=== PATIENT | male | born 1950 | race Caucasian/White ===

== ENCOUNTER 2018-06-15 11:44 | Observation (INO) | payer MEDICARE, OTHER, MEDICAID ==
[2018-06-15] MEDS: CEFAZOLIN 1 GM/50 ML (PMX) 50 ML IVPB ×2 (12:00→16:53)
[2018-06-15] MEDS: DEXAMETHASONE 4 MG/ML 1 ML INJ IV (12:50)
[2018-06-15] MEDS: LANSOPRAZOLE 30 MG CAP PO (12:54)
[2018-06-15] MEDS: ACETAMINOPHEN 1000MG/100ML IV 100 ML IVPB (12:55)
[2018-06-15] MEDS: LACTATED RINGER'S 1,000 ML IV* (12:56)
[2018-06-15] MEDS: oxyCODONE (CR) 10 MG TAB [oxyCONTIN] PO (12:56)
[2018-06-15] MEDS: ONDANSETRON 4 MG INJ IV ×3 (12:57→23:00)
[2018-06-15] MEDS ORDERED: BISACODYL 10 MG SUPP PR (13:00)
[2018-06-15] MEDS ORDERED: oxyCODONE 5 MG TAB PO (13:00)
[2018-06-15] MEDS ORDERED: NA PHOSPHATE/BIPHOS 133 ML ENEMA PR (13:00)
[2018-06-15] MEDS ORDERED: SENNA/DOCUSATE NA (8.6MG/50MG) TAB PO (13:00)
[2018-06-15] MEDS ORDERED: MAGNESIUM HYDROXIDE 30ML CUP PO (13:00)
[2018-06-15] MEDS ORDERED: NALOXONE (0.4 MG/ML) INJ IV (13:00)
[2018-06-15] MEDS ORDERED: DIPHENHYDRAMINE 50 MG INJ IV ×2 (13:00→13:30)
[2018-06-15] MEDS ORDERED: ONDANSETRON 4 MG INJ IV (13:30)
[2018-06-15] MEDS ORDERED: hydrALAzine 20 MG INJ IV (13:30)
[2018-06-15] MEDS ORDERED: LABETALOL HCL 20MG INJ IV (13:30)
[2018-06-15] MEDS: TRANEXAMIC ACID 1,000 MG in NS 100 ML INTRA-OP X1 IVPB (13:30)
[2018-06-15] MEDS ORDERED: HYDROmorphONE 1 MG/5 ML IV SYRINGE IV ×3 (13:30)
[2018-06-15] MEDS ORDERED: MEPERIDINE 25 MG INJ IV (13:30)
[2018-06-15] MEDS ORDERED: ROPIVACAINE 0.2% 20 ML VIAL (13:37)
[2018-06-15] MEDS ORDERED: CEFAZOLIN 1 GM INJ (13:37)
[2018-06-15] MEDS ORDERED: PROPOFOL 20 ML ×2 (13:37→14:30)
[2018-06-15] MEDS ORDERED: morphine SULFATE/PF (10 MG/10 ML) INJ (13:37)
[2018-06-15] MEDS ORDERED: MIDAZOLAM 1 MG/ML 2 ML INJ (13:37)
[2018-06-15] MEDS ORDERED: ONDANSETRON 4 MG INJ (13:37)
[2018-06-15] MEDS ORDERED: METOCLOPRAMIDE 10 MG INJ (13:38)
[2018-06-15] MEDS ORDERED: FENTAnyl 50 MCG/ML VIAL (13:40)
[2018-06-15] MEDS: BACITRACIN 50000 UNITS INJ (13:42)
[2018-06-15] MEDS: TRANEXAMIC ACID 1,000 MG in NS 100 ML PRE-OP X1 IVPB (13:42)
[2018-06-15] MEDS: POLYMYXIN B 500000 UNIT INJ (13:42)
[2018-06-15] MEDS ORDERED: ROCURONIUM 50 MG INJ ×2 (14:16→14:17)
[2018-06-15] MEDS ORDERED: MEPERIDINE 100 MG INJ (14:18)
[2018-06-15] MEDS ORDERED: METOPROLOL 5 MG INJ (14:30)
[2018-06-15] MEDS: HIP PAIN COCKTAIL (CEFUROXIME) INJ (14:41)
[2018-06-15] MEDS ORDERED: NEOSTIGMINE 3 MG/3 ML SYRINGE (15:55)
[2018-06-15] MEDS ORDERED: GLYCOPYRROLATE 0.4 MG INJ (15:55)
[2018-06-15] MEDS: ASPIRIN 81 MG TAB PO ×2 (16:53→20:54)
[2018-06-15] MEDS: DOCUSATE SODIUM 100 MG CAP PO (16:54)
[2018-06-15] MEDS: SOD CHLORIDE 0.9% 1,000 ML IV (17:54)
[2018-06-15] MEDS: GABAPENTIN 100 MG CAP PO (20:54)
[2018-06-16] MEDS: CEFAZOLIN 1 GM/50 ML (PMX) 50 ML IVPB ×2 (00:56→08:46)
[2018-06-16] MEDS: SOD CHLORIDE 0.9% 1,000 ML IV ×2 (01:19→06:33)
[2018-06-16] MEDS: ONDANSETRON 4 MG INJ IV ×2 (05:00→11:50)
[2018-06-16 05:15] LABS: WHITE BLOOD COUNT 10.8 10^3/ul (4.8-10.8)
[2018-06-16 05:15] LABS: ADD MAN DIFF? NO; BASOPHILS % 0.2 % (0.0-2.0); HEMATOCRIT 34.9 % (42.0-52.0); HEMOGLOBIN 11.6 g/dl (14.0-18.0); LYMPHOCYTES # 0.9 10^3/ul (0.8-2.9); LYMPHOCYTES % 8.5 % (15.0-51.0); MEAN CORPUSCULAR HEMOGLOBIN 30.5 pg (29.0-33.0); MEAN CORPUSCULAR HGB CONC 33.2 g/dl (32.0-37.0); MEAN CORPUSCULAR VOLUME 91.8 fl (82.0-101.0); MONOCYTE # 0.7 10^3/ul (0.3-0.9); MONOCYTES % 6.7 % (0.0-11.0); NEUTROPHIL # 9.1 10^3/ul (1.6-7.5); NEUTROPHILS % 84.2 % (39.0-77.0); PLATELET COUNT 206 10^3/UL (140-415); RED CELL DISTRIBUTION WIDTH 14.4 % (11.5-14.5)
[2018-06-16 05:44] LABS: ANION GAP 6 (5-13); BLOOD UREA NITROGEN 14 mg/dl (7-20); CALCIUM 8.3 mg/dl (8.4-10.2); CARBON DIOXIDE 27 mmol/L (21-31); CHLORIDE 110 mmol/L (97-110); CREATININE 1.02 mg/dl (0.61-1.24); Estimated GFR > 60 mL/min (>60); GLUCOSE 130 mg/dl (70-220); SODIUM 143 mmol/L (135-144)
[2018-06-16] MEDS: LEVOTHYROXINE 125 MCG TAB PO (06:33)
[2018-06-16] MEDS: BETHANECHOL 25 MG TAB PO (08:44)
[2018-06-16] MEDS: GABAPENTIN 100 MG CAP PO ×2 (08:45→20:25)
[2018-06-16] MEDS: DOCUSATE SODIUM 100 MG CAP PO ×2 (08:45→20:24)
[2018-06-16] MEDS: ASPIRIN 81 MG TAB PO ×2 (08:45→20:24)
[2018-06-16] MEDS: FERROUS FUMARATE (SR) TAB PO ×2 (08:45→20:24)
[2018-06-16] MEDS: CELECOXIB 200 MG CAP PO ×2 (08:45→20:25)
[2018-06-16] MEDS: INFLUENZA VIRUS VACCINE 0.5 ML (DISPENSING) IM* (08:47)
[2018-06-16] MEDS: oxyCODONE 5 MG TAB PO ×3 (15:06→22:04)
[2018-06-17] MEDS ORDERED: PANTOPRAZOLE (EC) 40 MG TAB PO (06:00)
== END 2018-06-16 21:30 | disposition home health service (06) ==
LOC: REC 11:44 → MS1 17:43
PROVIDERS: Orthopaedic Surgery Adult Reconstructive Orthopaedic Surgery
DX: M17.12 Unilateral primary osteoarthritis, left knee (principal); I10 Essential (primary) hypertension; E11.9 Type 2 diabetes mellitus without complications; E78.00 Pure hypercholesterolemia, unspecified; J45.909 Unspecified asthma, uncomplicated; E03.9 Hypothyroidism, unspecified; N40.0 Benign prostatic hyperplasia without lower urinary tract symptoms; Z23 Encounter for immunization
CPT/HCPCS: 27447; 73560; 80048; 82962; 85025; 87081; 88304; 88311; 90686; 97110; 97116; 97162; 97166; 97530; 99217